=== PATIENT | female | born 1950 | race Caucasian/White ===

== ENCOUNTER 2019-05-15 10:15 | Day surgery (SDC) | payer MEDICARE, OTHER ==
[~2019-05-15] VITALS: Ht 162.6 cm; Wt 100.0 kg
[2019-05-15 10:25] VITALS: BP 143/69
[2019-05-15] MEDS ORDERED: LISI-600 PO (10:28)
[2019-05-15] MEDS ORDERED: MIDAZolam 5mg/5ml vial ONE (11:23)
[2019-05-15] MEDS ORDERED: fentaNYL/PF 50MCG/1 ML 2ML syringe ONE (11:23)
[2019-05-15 12:03] VITALS: BP 143/69
[2019-05-15 12:13] VITALS: BP 113/71
[2019-05-15 12:23] VITALS: BP 136/86
[2019-05-15 12:33] VITALS: BP 129/72
== END 2019-05-15 12:35 | disposition home or self-care (01) ==
LOC: GI LAB 10:15
PROVIDERS: ATTEND Internal Medicine Gastroenterology
DX: Z12.11 Encounter for screening for malignant neoplasm of colon (principal); Z86.010 Personal history of colon polyps; K64.8 Other hemorrhoids; K57.30 Diverticulosis of large intestine without perforation or abscess without bleeding
CPT/HCPCS: 99153; G0105; G0500; J2250; J3010; J7040; 45378; 99152; A4620